=== PATIENT | female | born 1955 | race Caucasian/White ===

== ENCOUNTER 2020-12-13 23:44 | Emergency (ER) | payer OTHER, MEDICARE ==
[2020-12-14 00:34] VITALS: BP 134/83; PULSE 91; TEMP 98.1; BMI 31.6
[2020-12-14] MEDS ORDERED: LIDOCAINE 5% TOPICAL PATCH TP ONE (00:52)
[2020-12-14] MEDS ORDERED: LIDOCAINE 5% TOPICAL PATCH ONE (01:19)
[2020-12-14] MEDS ORDERED: CYCLOBENZAPRINE HCL 5 MG TABLET PO ONE (02:15)
[2020-12-14] MEDS ORDERED: CYCLOBENZAPRINE HCL 10 MG TABLET (FP) ONE (02:21)
[2020-12-14] MEDS ORDERED: LIDOCAINE PATCH REMOVAL MC SCH (22:00)
== END 2020-12-14 03:26 | disposition home or self-care (01) ==
LOC: JER 23:44
DX: M54.41 Lumbago with sciatica, right side (principal)
CPT/HCPCS: 99283-25